=== PATIENT | female | born 1945 | race Caucasian/White ===

== ENCOUNTER → 2017-12-14 | Outpatient (CLI) | payer OTHER ==
--- NOTE | 2017-12-14 15:52 | US ---
THYROID ULTRASOUND CLINICAL INFORMATION: Thyroid nodules. TECHNIQUE: Standard transcutaneous scanning 2-dimensional and Doppler modes. COMPARISON: None. FINDINGS: Thyroid size: Right lobe 4.3 x 1.5 x 1.5 cm. Left lobe 4.2 x 2.0 x 1.5 cm. Isthmus 3.3 mm. Texture: Heterogeneous. Estimated total number of nodules >/=1 cm: 1 Number of spongiform nodules >/=2 cm not described below (TR1): 0 Number of mixed cystic and solid nodules >/=1.5 cm not described below (TR2): 0 Nodule #: 1 Maximum size: 1.2 cm; All dimensions 1.1 x 0.9 cm Location: left; mid Composition: solid/almost completely solid (2). Nonvascular. Echogenicity: very hypoechoic (3) Shape: not [id number] (0) Margins: smooth (0) Echogenic foci: large comet-tail artifacts (0) ACR TI-RADS total points: 5. ACR TI-RADS risk category: TR4 (4-6 points) ACR TI-RADS recommendation: Follow-up ultrasound in 1 year Nodule #: 2 Maximum size: 0.6 cm; All dimensions 0.6 x 0.3 cm Location: left; upper Composition: solid/almost completely solid (2) Echogenicity: hypoechoic (2) Shape: not [id number] (0) Margins: smooth (0) Echogenic foci: none (0) ACR TI-RADS total points: 4. ACR TI-RADS risk category: TR4 (4-6 points) ACR TI-RADS recommendation: No further follow-up Nodule #: 3 Maximum size: 0.8 cm; All dimensions 0.6 x 0.5 cm Location: right; mid Composition: solid/almost completely solid (2). Minimally vascular by Doppler. Echogenicity: hypoechoic (2) Shape: not jhhenu-[id number] (0) Margins: smooth (0) Echogenic foci: none (0) ACR TI-RADS total points: 4. ACR TI-RADS risk category: TR4 (4-6 points) ACR TI-RADS recommendation: No further follow-up Nodule #: 4 Maximum size: 0.9 cm; All dimensions 0.8 x 0.6 cm Location: right; mid Composition: solid/almost completely solid (2) Echogenicity: hypoechoic (2) Shape: not gcwluy-ttmm-tafc (0) Margins: smooth (0) Echogenic foci: none (0) ACR TI-RADS total points: 4. ACR TI-RADS risk category: TR4 (4-6 points) ACR TI-RADS recommendation: No further follow-up No distinct solid mass or cyst in the adjacent soft tissues. No large calcifications or parenchymal edema. IMPRESSION: 1. 1.2 cm very hypoechoic solid nodule (nodule #1) in the mid left lobe with parallel orientation, smooth borders, and no calcifications. TIRADS risk category TR 4. Recommend thyroid ultrasound follow-up in one year interval. Please see below.* 2. Other solid hypoechoic nodules (nodules #2-4) are less than 1 cm diameter and are bilateral. Smooth borders, parallel orientation, and no calcifications. These are TI-RADS risk category TR 4.. no imaging follow-up is recommended (greatest diameter less than 1 cm). 3. Surrounding soft tissue is unremarkable. *ACR TI-RADS recommendations: TR5 (>/=7 points) - FNA if >/=1 cm, follow-up if 0.5 - 0.9 cm every year for 5 years TR4 (4-6 points) - FNA if >/=1.5 cm, follow-up if 1 - 1.4 cm in 1, 2, 3 and 5 years TR3 (3 points) - FNA if >/=2.5 cm, follow -up if 1.5 - 2.4 cm in 1, 3 and 5 years TR2 (2 points) and TR1 (0 points) - No FNA or follow-up * ACR TI-RADS recommends that no more than two nodules with the highest ACR TI-RADS total point should be biopsied and no more than four nodules should be followed. Electronically signed by: Carl Villanueva MD 12/14/2017 3:51 PM CDT
== END ==
LOC: US 09:45
PROVIDERS: ATTEND Family Medicine
DX: E04.1 Nontoxic single thyroid nodule (principal); I10 Essential (primary) hypertension; I65.29 Occlusion and stenosis of unspecified carotid artery

== ENCOUNTER → 2017-12-28 | Outpatient (CLI) | payer OTHER | LOC: GMAM 12:17 | PROVIDERS: ATTEND Family Medicine | DX: E53.8 Deficiency of other specified B group vitamins (principal) ==

== ENCOUNTER → 2018-01-09 | Outpatient (CLI) | payer OTHER | LOC: GMAM 10:31 | PROVIDERS: ATTEND Family Medicine | DX: R94.5 Abnormal results of liver function studies (principal) ==

== ENCOUNTER → 2018-01-13 | Outpatient (CLI) | payer OTHER ==
--- NOTE | 2018-01-13 12:45 | US ---
EXAM DESCRIPTION: Liver CLINICAL HISTORY: 72 years Female, ELEVATED LFT COMPARISON: Previous ultrasound of the liver April 16, [address] abdomen and pelvis April 27, 2016 TECHNIQUE: Upper abdominal sonogram was performed with attention to the liver. FINDINGS: Visualized portions of the pancreas are unremarkable. The liver is homogeneous in texture. No focal liver lesion. Upper length of 14.7 cm is normal. Positive color flow in the liver hilum. Central intrahepatic bile ducts appear prominent. Common duct is ectatic measuring 2.3 cm in diameter. Previous CT showed a very large common hepatic and common bile duct measuring 1.7 cm in diameter and no distal obstructing lesion was seen in the pancreas or within the ductal lumen. Prominent central intrahepatic ducts were also present at that time. Patient had a previous sonogram April 16, 2016 which showed ectatic pancreatic duct measuring 5 mm in diameter and markedly enlarged common hepatic and common bile duct over 2 cm in diameter. Without change, additional studies may not be indicated. Right kidney measures 8.7 cm in length which is abnormally small for an adult suggesting global atrophy or senescent changes. The right kidney appeared small on the previous sonogram but the length was not measured with the lower pole obscured by bowel gas. Gallbladder is not seen, evidently surgically absent. IMPRESSION: Dilated intrahepatic and extra hepatic bile ducts similar to previous studies. Small right kidney consistent with global atrophy or scarring. Electronically signed by: Nelson More MD 01/13/2018 12:43 PM CDT
== END ==
LOC: US 09:01
PROVIDERS: ATTEND Family Medicine
DX: R94.5 Abnormal results of liver function studies (principal)

== ENCOUNTER → 2018-01-18 | Outpatient (CLI) | payer OTHER ==
--- NOTE | 2018-01-18 09:47 | US ---
EXAM DESCRIPTION: Renal Ultrasound CLINICAL HISTORY: DISORDER OF KIDNEY AND URETER SMALL RIGHT SIDE KIDNEY COMPARISON: None. TECHNIQUE: Bryan scale and color flow sonographic images of the kidneys were obtained. FINDINGS: The kidneys are normal in echogenicity. The right kidney measures up to 8.9 cm in length and the left kidney measures up to 9.2 cm in length. There is no hydronephrosis, sonographically visible renal calculus, or sonographically visible renal mass. There is no perirenal fluid. IMPRESSION: Unremarkable renal ultrasound. Electronically signed by: Javier Hunter MD 01/18/2018 9:46 AM CDT
== END ==
LOC: US 08:28
PROVIDERS: ATTEND Family Medicine
DX: N28.89 Other specified disorders of kidney and ureter (principal)

== ENCOUNTER 2018-11-21 16:35 | Observation (INO) | payer MEDICARE, OTHER ==
[2018-11-21] MEDS ORDERED: ASPIRIN TABLET 325 MG TAB PO ONE (16:42)
[2018-11-21] MEDS ORDERED: ONDANSETRON INJ 4 MG/2 ML VIAL IV ONE (16:42)
[2018-11-21] MEDS ORDERED: NITROGLYCERIN 0.4 MG 25 EA TAB SL ONE ×2 (16:42→16:45)
[2018-11-21] MEDS ORDERED: SODIUM CHLORIDE 0.9% (FLUSH) 10 ML SYG IV PRN ×2 (16:42→21:31)
[2018-11-21] MEDS ORDERED: ASPIRIN TABLET 325 MG TAB ONE (16:43)
--- NOTE | 2018-11-21 17:23 | RAD ---
EXAM DESCRIPTION: Chest,1 View CLINICAL HISTORY: C.P. COMPARISON: 06 October 2018 TECHNIQUE: AP portable chest FINDINGS: Cardiomegaly is evident. The lungs are clear. No pulmonary edema seen. No pleural fluid is identified. Surgical clips are observed in the right axillary region. IMPRESSION: Cardiac megaly is observed without evidence of congestive heart failure. Electronically signed by: Jani Prince MD 11/21/2018 4:55 PM CDT
[2018-11-21] MEDS ORDERED: POTASSIUM BICARBONATE 25 MEQ TAB PO ONE (19:42)
--- NOTE | 2018-11-21 19:42 | ED.PDOC ---
History of Present Illness - General Chief Complaint: Chest Pain/MD Stated Complaint: Chest discomfort Time Seen by Provider: 11/21/18 16:40 Source: patient Exam Limitations: no limitations - History of Present Illness Initial Comments: NOON TODAY, STARTED HAVING PALPITATIONS AND CP. CENTRAL STERNAL PAIN. L ARM DISCOMFORT. ALSO CAUSING SOB. KNOWN H/O HTN, AFIB, ON ELIQUIS. BR CA IN 1991. Severity/Quality: severe, dull, pressure Location: substernal, central Chest Pain Radiation: shoulders Activities at Onset: none Prior Chest Pain/Cardiac Workup: heart attack Improving Factors: nothing Worsening Factors: nothing Nitro Today/Relief: no nitro taken today Aspirin Treatment Today: no aspirin today Associated Symptoms: shortness of breath Allergies/Adverse Reactions: Allergies Meperidine [From Demerol HCl] Adverse Reaction (Severe, Verified 10/19/17 19:40) Codeine Adverse Reaction (Verified 10/19/17 16:48) Other Morphine Adverse Reaction (Verified 10/19/17 16:48) Other Home Medications: Ambulatory Orders Apixaban [Eliquis] 5 mg PO BID 10/19/17 BuPROPion XL [Wellbutrin XL] 150 mg PO BID 10/19/17 Clonazepam [Clonazepam Odt] 0.5 - 0.75 mg PO TID PRN 10/19/17 Amlodipine Besylate 10 mg PO DAILY 11/21/18 Aspirin [Aspirin Adult Low Dose] 81 mg PO DAILY 11/21/18 Cyclobenzaprine HCl [Flexeril] 10 mg PO BEDTIME 11/21/18 Furosemide [Lasix] 20 mg PO DAILY 11/21/18 HYDROcodone 10MG/APAP 325MG [[place] 10/325] 1 tab PO Q6H PRN 11/21/18 Oxycodone HCl [Oxycontin] 10 mg PO BID 11/21/18 Potassium Chloride [Potassium Chloride ER] 8 meq PO DAILY PRN 11/21/18 Sumatriptan Succinate [Imitrex] 25 mg PO Q2H PRN 11/21/18 Triamcinolone Acetonide (Nasal [Nasacort Allergy 24Hr] 55 mcg MARGUERITE DAILY PRN 11/21/18 raNITIdine HCL [Zantac] 150 mg PO DAILY 11/21/18 Review of Systems - Review of Systems Constitutional: Denies: chills, fever, weakness EENTM: States: no symptoms reported Respiratory: States: short of breath. Denies: cough, wheezing Cardiology: States: chest pain, palpitations. Denies: syncope Gastrointestinal/Abdominal: States: no symptoms reported Genitourinary: States: no symptoms reported Musculoskeletal: States: no symptoms reported Skin: States: no symptoms reported Neurological: States: anxiety. Denies: headache Endocrine: States: no symptoms reported Hematologic/Lymphatic: States: no symptoms reported All other Systems: Reviewed and Negative Past Medical History (General) - Patient Medical History Hx Seizures: No Hx Stroke: No Hx Asthma: No Hx of COPD: No Hx Cardiac Disorders: Yes - A fib; MD 2009 Hx Congestive Heart Failure: No Hx Pacemaker: No Hx Hypertension: Yes Hx Diabetes: No Hx Cancer: Yes - Breast 1991 Hx MRSA: No Surgical History: cholecystectomy, Hysterectomy, other - Vaccination History Hx Influenza Vaccination: Yes - 2018 Hx Pneumococcal Vaccination: No - Social History Hx Tobacco Use: Yes - Quit in the Hx Alcohol Use: No Hx Substance Use: No Hx Substance Use Treatment: No Hx Depression: No Hx Physical Abuse: No Hx Emotional Abuse: No Family Medical History - Family History Mother Family History: Unknown Physical Exam - Physical Exam General Appearance: Alert, Other - ANXIOUS-APPEARING Eyes, Ears, Nose, Throat Exam: PERRL/EOMI, normal ENT inspection Neck: non-tender, full range of motion, supple, normal inspection Respiratory: chest non-tender, lungs clear, normal breath sounds Cardiovascular/Chest: normal peripheral pulses, regular rate, rhythm, no murmur Peripheral Pulses: radial,right: 2+, radial,left: 2+ Gastrointestinal/Abdominal: normal bowel sounds, non tender Rectal Exam: deferred Extremity: normal range of motion, normal inspection, no pedal edema, no calf tenderness Neurologic: no motor/sensory deficits, alert, oriented x 3 Skin Exam: normal color, warm/dry Lymphatic: no adenopathy Progress - Progress Progress: 11/21/18 19:46 CBC NEG. CMP K+ 3.2 CXR NEG EXCEPT KNWON CARDIOMEGALY. NO CHF/PULMONARY EFFUSION. CARDIAC ENZ NEG X 2. EKG AFIB (KNOWN HX) BNP MILDLY ELEV AT 352 BUT NO OTHER CLINICAL S/SX OF ACUTE HEART FAILURE. COAGS NEG. ANXIETY - HOME CLONIDINE GIVEN. NO ACS OF YET. ADMITTING FOR CP R/O. THANK YOU, DONNA DANIELS AND [facility], FOR ACCEPTING FURTHER CARE OF THIS PT. Departure - Departure Clinical Impression: Hypertensive cardiomegaly, Hypokalemia, History of MD (myocardial infarction) Chest pain Qualifiers: Chest pain type: unspecified Qualified Code(s): R07.9 - Chest pain, unspecified Dyspnea Qualifiers: Dyspnea type: shortness of breath Qualified Code(s): R06.02 - Shortness of breath; R06.00 - Dyspnea, unspecified; R06.01 - Orthopnea Hypertension Qualifiers: Hypertension type: essential hypertension Qualified Code(s): I10 - Essential (primary) hypertension Atrial fibrillation Qualifiers: Atrial fibrillation type: chronic Qualified Code(s): I48.2 - Chronic atrial fibrillation Disposition: Admit Patient Condition: Fair Diet: low salt diet Referrals: Arun Harris MD [Primary Care Provider] - 1-2 Weeks Home Medications: Ambulatory Orders Apixaban [Eliquis] 5 mg PO BID 10/19/17 BuPROPion XL [Wellbutrin XL] 150 mg PO BID 10/19/17 Clonazepam [Clonazepam Odt] 0.5 - 0.75 mg PO TID PRN 10/19/17 Amlodipine Besylate 10 mg PO DAILY 11/21/18 Aspirin [Aspirin Adult Low Dose] 81 mg PO DAILY 11/21/18 Cyclobenzaprine HCl [Flexeril] 10 mg PO BEDTIME 11/21/18 Furosemide [Lasix] 20 mg PO DAILY 11/21/18 HYDROcodone 10MG/APAP 325MG [[place] 10/325] 1 tab PO Q6H PRN 11/21/18 Oxycodone HCl [Oxycontin] 10 mg PO BID 11/21/18 Potassium Chloride [Potassium Chloride ER] 8 meq PO DAILY PRN 11/21/18 Sumatriptan Succinate [Imitrex] 25 mg PO Q2H PRN 11/21/18 Triamcinolone Acetonide (Nasal [Nasacort Allergy 24Hr] 55 mcg MARUGERITE DAILY PRN 11/21/18 raNITIdine HCL [Zantac] 150 mg PO DAILY 11/21/18 Decision To Admit - Decistion To Admit Decision to Admit Reason: Admit from ER Decision to Admit Date: 11/21/18 Decision to Admit Time: 19:52
--- NOTE | 2018-11-21 20:42 | HP ---
SUPERVISING PHYSICIAN: NADER MATTHEWS MD CHIEF COMPLAINT: Palpitations. HISTORY OF PRESENT ILLNESS: This 73 year-old female went to her primary care physician's office for palpitations. She does have a history of atrial fibrillation and sees Dr. Yanez in the [facility] for this. Around noon today she started having palpitations and she went to Dr. Harris's office. There, they found that her heart rate was elevated and irregular consistent with atrial fibrillation. She also complains of sternal chest pain at the office as well as left arm pain. For this reason, she was sent to the Emergency Room. In the Emergency Room, she was evaluated and found to be in atrial fibrillation. Once again, she does have a history and states that she usually takes Metoprolol but weaned herself off about 6 months ago. She does not really give a good reason for weaning off. Initially, she has been prescribed some Lasix but only takes that when she starts to get some swelling. In the Emergency Room, she had a workup which included cardiac enzymes and EKG. The cardiac enzymes did not show any acute findings x2. An EKG showed no acute ST segment changes. Other lab work included a chemistry which showed a low potassium at 3.2 and elevated BNP at 352. Other labs were unremarkable. Chest x-ray showed cardiomegaly but no pulmonary vascular congestion. She was referred for admission for chest pain rule out. On primary examination, the patient is alert and oriented and in no distress. She does state she has been having some lower extremity swelling lately. PAST MEDICAL HISTORY: 1. She states myocardial infarction but the doctor says it was not due to a blockage, that it was an electrical issue.. 2. Hypertension. 3. Breast cancer. 4. Atrial fibrillation. 5. Migraine.. PAST SURGICAL HISTORY: 1. Cardiac ablation. 2. Right mastectomy. 3. Bilateral salpingo-oophorectomy. 4. Hysterectomy. 5. Back surgery. CURRENT MEDICATIONS: 1. Amlodipine 10 mg p.o. daily. 2. Eliquis 5 mg p.o. b.i.d. 3. Bupropion 150 mg p.o. at bedtime. 4. Clonazepam 0.5 to 0.75 mg as needed for anxiety. 5. Cyclobenzaprine 10 mg p.o. at bedtime. 6. Hydrocodone 10/325 one tab every 6 hours p.r.n. for pain. 7. Oxycodone 10 mg p.o. b.i.d. 8. Ranitidine 150 mg p.o. daily. 9. Imitrex 25 mg p.o. every 2 hours p.r.n. for migraine. 10. Triamcinolone nasal spray 55 mcg daily. ALLERGIES: MEPERIDINE, CODEINE, MORPHINE. FAMILY HISTORY: Brother has had several arterial blockages in the past. SOCIAL HISTORY: No recent alcohol or drugs. REVIEW OF SYSTEMS: CONSTITUTIONAL: No fever, chills, recent weight loss or weight gain. HEENT: No headaches, vision changes, ear pain, nasal congestion or throat pain. RESPIRATORY: No cough, hemoptysis or pleuritic chest pain. CARDIOVASCULAR: Positive for chest pain, positive for palpitations, positive for peripheral edema. GI: No nausea, vomiting, diarrhea, constipation or abdominal pain. GENITOURINARY: No dysuria, frequency or flank pain. HEMATOLOGIC: Positive for easy bruising but no transfusion reaction. ENDOCRINE: No polydipsia, polyuria or polyphagia. No heat or cold intolerance. MUSCULOSKELETAL: Positive for chronic back pain, no acute joint pain or joint swelling noted. NEUROLOGIC: No seizures, paresthesias or syncope. PHYSICAL EXAMINATION: VITAL SIGNS: Blood pressure 120/69, heart rate 99, respiratory rate 18, temperature 98.0, oxygen saturation 99%. GENERAL: Mrs. Escobar is a 73 year-old female in no acute distress at the time. CHEST: Lungs are clear to auscultation bilaterally. CARDIOVASCULAR: Irregular rate and rhythm, normal S1, S2. Sounds as though there is a murmur on occasional beats but not consistently throughout all heartbeats. ABDOMEN: Soft, positive bowel sounds, obese, no tenderness to palpation. GENITOURINARY: Exam is deferred. EXTREMITIES: Lower extremities with 2+ ankle edema. Capillary refill less than 2 seconds. NEUROLOGIC: The patient is alert and oriented, moves all extremities, extraocular movements are intact. Labs and films are discussed in the history of present illness. ASSESSMENT: 1. Chest pain, rule out acute coronary syndrome. 2. Atrial fibrillation. 3. Congestive heart failure with no acute severe exacerbation but elevated BNP. 4. Hypokalemia. 5. Chronic pain. PLAN: At this time, we will complete the chest pain rule out with 2 more sets of cardiac enzymes and EKGs. The next ones will be around midnight 30, subsequently at 0630. We are also going to resume metoprolol. Her blood pressure is fairly controlled at this time so I am going to start off at a lower dose. She stated at one time she was taking 150 mg. I am going to start her off at 25 mg and see if we can get better rate control. I am also going to resume her Lasix at 20 twice a day. Will resume that for tomorrow and give her some potassium as well. Resume her Eliquis and other medications as well. If everything remains stable, she will likely go home tomorrow. I do think she needs an echocardiogram but once again, she will see her jewelry technician in the [facility] and this will be done outpatient. #[id number] [facility]
[2018-11-21] MEDS ORDERED: ACETAMINOPHEN 325 MG TAB PO PRN (21:31)
[2018-11-21] MEDS ORDERED: NITROGLYCERIN 0.4 MG 25 EA TAB SL PRN (21:31)
[2018-11-21] MEDS ORDERED: HYDROcodone 10MG/APAP 325MG 1 EA TAB PO PRN (21:36)
[2018-11-21] MEDS ORDERED: APIXABAN 2.5 MG TAB PO ONE (21:42)
[2018-11-21] MEDS ORDERED: NON-FORMULARY MEDICATION 1 EA MIS (Apixaban [Eliquis] 5 MG) PO SCH (21:45)
[2018-11-21] MEDS ORDERED: IV SET AND CAP CHANGE INJ INJ SCH (22:00)
[2018-11-22] MEDS ORDERED: APIXABAN 2.5 MG TAB PO ONE (07:26)
[2018-11-22] MEDS ORDERED: amLODIPine BESYLATE 5 MG TAB ONE (07:27)
[2018-11-22] MEDS ORDERED: POTASSIUM CHLORIDE 20 MEQ TAB PO SCH (07:30)
[2018-11-22] MEDS ORDERED: METOPROLOL TARTRATE 25 MG TAB PO SCH (07:30)
[2018-11-22] MEDS ORDERED: APIXABAN 2.5 MG TAB PO SCH (09:00)
[2018-11-22] MEDS ORDERED: SODIUM CHLORIDE 0.9% (FLUSH) 10 ML SYG IV SCH (09:00)
[2018-11-22] MEDS ORDERED: ASPIRIN TABLET 325 MG TAB PO SCH (09:00)
[2018-11-22] MEDS ORDERED: amLODIPine BESYLATE 5 MG TAB PO SCH (09:00)
[2018-11-22] MEDS ORDERED: FUROSEMIDE 40 MG TAB PO SCH (09:00)
[2018-11-22 10:31] VITALS: BP 126/83; TEMP 98; O2SAT 95
[2018-11-22] MEDS ORDERED: CYCLOBENZAPRINE HCL 10 MG TAB PO SCH (21:00)
[2018-11-22] MEDS ORDERED: Wellbutrin XL 150 MG TAB PO SCH (21:00)
--- NOTE | 2018-11-23 09:51 | DS ---
SUPERVISING PHYSICIAN: Gregg Lane MD ADMISSION DIAGNOSIS: 1. Chest pain, rule out acute coronary syndrome. 2. Atrial fibrillation. 3. Congestive heart failure with no acute exacerbation, but slightly elevated BNP. 4. Hypokalemia. 5. Chronic pain. DISCHARGE DIAGNOSIS: 1. Chest pain with no acute findings to indicate ischemia or acute myocardial infarction. 2. Atrial fibrillation with controlled ventricular rate with patient on Eliquis. 3. Congestive heart failure without any signs of exacerbation. 4. Mild hypokalemia, likely due to diuretics with the patient on potassium replacement. 5. Chronic pain. REASON FOR HOSPITALIZATION: This 73 year-old female went to her primary care physician's office for palpitations. She does have a history of atrial fibrillation and sees Dr. Yanez in the [facility] for this. Around noon today she started having palpitations and she went to Dr. Harris's office. There, they found that her heart rate was elevated and irregular consistent with atrial fibrillation. She also complains of sternal chest pain at the office as well as left arm pain. For this reason, she was sent to the Emergency Room. In the Emergency Room, she was evaluated and found to be in atrial fibrillation. Once again, she does have a history and states that she usually takes Metoprolol but weaned herself off about 6 months ago. She does not really give a good reason for weaning off. Initially, she has been prescribed some Lasix but only takes that when she starts to get some swelling. In the Emergency Room, she had a workup which included cardiac enzymes and EKG. The cardiac enzymes did not show any acute findings x2. An EKG showed no acute ST segment changes. Other lab work included a chemistry which showed a low potassium at 3.2 and elevated BNP at 352. Other labs were unremarkable. Chest x-ray showed cardiomegaly but no pulmonary vascular congestion. She was referred for admission for chest pain rule out. On primary examination, the patient is alert and oriented and in no distress. She does state she has been having some lower extremity swelling lately. The patient was placed in Observation in stable condition. LABORATORY: CBC showed white count 5,300, hemoglobin 12.6, hematocrit 38.2, platelet count 280,000. Differential without a left shift. Coagulation studies showed normal PT and PTT. Chemistries showed mildly low potassium at 3.2. Otherwise, electrolytes within normal limits. BUN 14, creatinine 0.76, calcium normal at 9.3. Magnesium 2.3. Liver functions showed slightly elevated AST 44. All other liver enzymes within normal limits. She had 4 troponins that were all less than 0.02. CPK within normal limits with last one of 43. Lipid panel shows triglycerides 48, cholesterol 154, LDL 93, HDL 50. RADIOLOGY: Chest x-ray, single-view, showed cardiomegaly without evidence of congestion failure. EKG showed initially in the Emergency Room atrial fibrillation with controlled ventricular rate. All other repeats showed no acute changes. HOSPITAL COURSE: Ms. Escobar was admitted on 11/21/18 for rule out acute coronary syndrome. She was pain-free on admission to the Floor and had no recurrence of her chest pains. She was started back on metoprolol for blood pressure control as well as Lasix twice daily. She was continued on Eliquis. On date of discharge, after ambulating, she was without any chest pains and felt stable enough to continue with outpatient management. DISCHARGE ASSESSMENT: GENERAL: The patient was in no acute distress. She is alert. CHEST: Lung sounds clear to auscultation bilaterally. HEART: Slightly irregular rate and rhythm with controlled ventricular rate showing on the monitor without any appreciable murmurs, gallops, or rubs. ABDOMEN: Soft, nontender. Positive bowel sounds. EXTREMITIES: Trace edema bilaterally. NEUROLOGIC: Alert and oriented x3. PLAN: Ms. Escobar was discharged with instructions to followup with Dr. Harris in 7 days or less as well as Dr. Moreno, her applications trainer, and to call for appointments. She was instructed to take her medications as directed and to return to the hospital should she have any worsening symptoms or recurrence of her chest pain. Diet at discharge was regular diet as tolerated. Activity to increase as tolerated. NEW MEDICATIONS: 1. Nitrostat 0.4 mg sublingual 1 q. 5 minutes as needed x3, #1 bottle. 2. Lasix 20 mg daily, #30. 3. Metoprolol 25 mg b.i.d., #60. 4. Potassium chloride 20 mEq daily, #30. All other medications were continued as prior to arrival includin. Wellbutrin 150 mg at bedtime. 2. Nasacort daily. 3. OxyContin 10 mg b.i.d. 4. [place] 10/325 1 q.6h. as needed for pain. 5. Eliquis 5 mg b.i.d. 6. Zantac 150 mg daily. 7. Flexeril 10 mg daily. 8. Imitrex 25 mg q.2h. as needed for headache. 9. Amlodipine 10 mg daily. 10. Clonazepam 0.5 to 0.75 t.i.d. as needed. CONDITION AT DISCHARGE: Stable and improved. DISPOSITION: The patient was discharged to family. [facility][id number] [facility]
== END 2018-11-22 11:35 | disposition home or self-care (01) ==
LOC: ER 16:35 → MS 20:40
PROVIDERS: ADMIT Nurse Practitioner; ATTEND Nurse Practitioner Family
DX: I48.2 Chronic atrial fibrillation (principal); R07.2 Precordial pain; I11.0 Hypertensive heart disease with heart failure; I50.9 Heart failure, unspecified; E87.6 Hypokalemia; G89.29 Other chronic pain; F41.9 Anxiety disorder, unspecified; Z79.01 Long term (current) use of anticoagulants; Z79.891 Long term (current) use of opiate analgesic; Z79.899 Other long term (current) drug therapy; Z88.6 Allergy status to analgesic agent; Z87.891 Personal history of nicotine dependence; Z85.3 Personal history of malignant neoplasm of breast; Z90.11 Acquired absence of right breast and nipple
CPT/HCPCS: 96374; J2405; 82553 ×4; 80061; 36415 ×4; 82550 ×4; 80048; 85025; 85730; 85610; 84484 ×4; 80076; 83880; 71045; 94760; 99285; 93005 ×4; G0378

== ENCOUNTER → 2019-10-23 | Outpatient (CLI) | payer MEDICARE, OTHER | LOC: GMAM 11:36 | PROVIDERS: ATTEND Family Medicine | DX: E53.8 Deficiency of other specified B group vitamins (principal); I10 Essential (primary) hypertension; D64.9 Anemia, unspecified ==

== ENCOUNTER 2019-12-20 19:41 | Observation (INO) | payer OTHER ==
[2019-12-20] MEDS ORDERED: ONDANSETRON INJ 4 MG/2 ML VIAL IV ONE (19:50)
[2019-12-20] MEDS ORDERED: SODIUM CHLORIDE 0.9% (FLUSH) 10 ML SYG IV PRN ×2 (19:50→22:03)
[2019-12-20] MEDS ORDERED: NITROGLYCERIN 0.4 MG 25 EA TAB SL ONE (19:50)
[2019-12-20] MEDS ORDERED: NITROGLYCERIN 2% 1 GM UD TOP ONE (20:40)
--- NOTE | 2019-12-20 20:42 | RAD ---
EXAM DESCRIPTION: Chest,1 View CLINICAL HISTORY: 74 years Female cp COMPARISON: 11/21/2018 FINDINGS: Cardiac enlargement. Prominence of the central bony vasculature. No acute consolidation or evidence of pulmonary edema. No pleural fluid or pneumothorax. IMPRESSION: Cardiac enlargement No acute infiltrate identified Electronically signed by: Symone Rodrigues MD 12/20/2019 8:40 PM CDT
--- NOTE | 2019-12-20 21:09 | ED.PDOC ---
History of Present Illness - General Chief Complaint: Chest Pain/CA Stated Complaint: chest pain Time Seen by Provider: 12/20/19 19:50 Source: patient, RN notes reviewed, Vital Signs reviewed, family - Exam Limitations: no limitations - History of Present Illness Initial Comments: Patient is a 74-year-old white female who noticed an onset of chest pain approximately 1 hour prior to arrival. The pain was tight in nature. 9/10 in intensity. Radiating straight through to her back and down her left arm and into her left neck. Patient had nausea with diaphoresis. She had no vomiting. She did not experience dizziness. The pain improved with nitroglycerin. On arrival here her pain was 7/10. Patient has a history of atrial fibrillation. She was seen by her electronic scanner operator approximately 1 month ago. At that time they did a nuclear stress test which showed some inferior wall abnormalities. A cardiac cath was performed and her coronary arteries were found to be clean. On arrival here her blood pressure is 200/110. Patient denies any headache, blurry vision, dizziness, weakness, diarrhea, paresthesias. Timing/Duration: 1-3 hours Severity/Quality: severe Location: substernal, central Chest Pain Radiation: jaw, arms, back Activities at Onset: none Prior Chest Pain/Cardiac Workup: cardiac cath, cardiolye scan, thallium scan Worsening Factors: medication - Nitroglycerin Nitro Today/Relief: 0.4 mg x 3, 0.4 mg x 4, provided by EMS, provided by ED, provided at home Aspirin Treatment Today: no aspirin today Associated Symptoms: back pain, diaphoresis, nausea/vomiting - Nausea only, shortness of breath Allergies/Adverse Reactions: Allergies Meperidine [From Demerol HCl] Adverse Reaction (Severe, Verified 11/21/18 20:50) Codeine Adverse Reaction (Verified 11/21/18 20:50) Other Morphine Adverse Reaction (Verified 11/21/18 20:50) Other Home Medications: Ambulatory Orders Apixaban [Eliquis] 5 mg PO BID 10/19/17 BuPROPion XL [Wellbutrin XL] 150 mg PO BEDTIME 10/19/17 Clonazepam [Clonazepam Odt] 0.5 - 0.75 mg PO TID PRN 10/19/17 Amlodipine Besylate 10 mg PO DAILY 11/21/18 Cyclobenzaprine HCl [Flexeril] 10 mg PO BEDTIME 11/21/18 HYDROcodone 10MG/APAP 325MG [Rolla 10/325] 1 tab PO Q6H PRN 11/21/18 Oxycodone HCl [Oxycontin] 10 mg PO BID 11/21/18 Nitroglycerin 0.4 mg Tab [Nitrostat] 1 ea SL Q5MIN PRN #1 bttl 11/22/18 Potassium Chloride Tab [K-Dur] 20 meq PO DAILYBK #30 tab 11/22/18 Aspirin [Aspirin Low Strength] 81 mg PO 12/20/19 Furosemide [Lasix] 20 mg PO DAILY PRN 12/20/19 Losartan Potassium 50 mg PO BID 12/20/19 Metoprolol Tartrate [Lopressor] 100 mg PO DAILY 12/20/19 Omeprazole 20 mg PO BID 12/20/19 Sumatriptan Succinate [Imitrex] 25 mg PO PRN 12/20/19 Review of Systems - Review of Systems Constitutional: States: no symptoms reported, see HPI. Denies: chills, fever, malaise EENTM: States: no symptoms reported, see HPI. Denies: blurred vision, double vision, throat pain Respiratory: States: see HPI, short of breath. Denies: cough, stridor, wheezing Cardiology: States: see HPI, chest pain, edema - Bilateral lower extremities.. Denies: palpitations, syncope Gastrointestinal/Abdominal: States: see HPI, nausea. Denies: vomiting Genitourinary: States: no symptoms reported Musculoskeletal: States: see HPI, back pain. Denies: neck pain Skin: States: no symptoms reported. Denies: change in color, rash Neurological: States: no symptoms reported Endocrine: States: no symptoms reported Hematologic/Lymphatic: States: no symptoms reported All other Systems: No Change from Baseline Past Medical History (General) - Patient Medical History Hx Seizures: No Hx Stroke: No Hx Asthma: No Hx of COPD: No Hx Cardiac Disorders: Yes - A fib; CA 2009 Hx Congestive Heart Failure: Yes Hx Pacemaker: No Hx Hypertension: Yes Hx Diabetes: No Hx Cancer: Yes - left breast with mastectomy Hx MRSA: No - Vaccination History Hx Tetanus, Diphtheria Vaccination: No Hx Influenza Vaccination: Yes Hx Pneumococcal Vaccination: No Immunizations Up to Date: No - Social History Hx Tobacco Use: Yes Hx Alcohol Use: Yes Hx Substance Use: No Hx Substance Use Treatment: No Hx Depression: No Hx Physical Abuse: No Hx Emotional Abuse: No - Female History Patient is a Female of Child Bearing Age (10 -59 yrs old): No Family Medical History - Family History Mother Family History: Unknown Living Status: Physical Exam - Physical Exam General Appearance: Alert, Anxious, Obese, Well Developed, Well Groomed, Well Hydrated, Well Nourished Eyes, Ears, Nose, Throat Exam: PERRL/EOMI, normal ENT inspection, pharynx normal Neck: non-tender, full range of motion, supple, normal inspection Respiratory: chest non-tender, lungs clear, no respiratory distress, rhonchi - In bases bilaterally Cardiovascular/Chest: normal peripheral pulses, no murmur, irregularly irregular, other - Mild peripheral edema bilaterally in the lower extremities. Peripheral Pulses: radial,right: 2+, radial,left: 2+ Gastrointestinal/Abdominal: normal bowel sounds, non tender, soft, no organomegaly, no pulsatile mass Extremity: normal range of motion, non-tender, normal inspection, pedal edema, swelling Neurologic: assessment expert II-XII nml as tested, no motor/sensory deficits, alert, normal mood/affect, oriented x 3 Skin Exam: normal color, warm/dry Lymphatic: no adenopathy Progress - Progress Progress: Differential diagnosis: Unstable angina, NSTEMI, pneumonia, CHF exacerbation among others. 12/20/19 21:27 Unlikely to be coronary artery disease as patient had a normal cath 1 month ago. Mild CHF exacerbation with accelerated hypertension. Plan on admission to the hospital for diuresis and blood pressure management. I discussed this plan of care with the patient and her and they voiced understanding and agreement. I have discussed this patient with Aleja Ventura NP, who has graciously accepted the patient for admission. Ace Minor M.D. #[id number] - Results/Orders Results/Orders: 12/20/19 19:50 Sodium Chloride 0.9% (Flush) [Saline Flush Syringe] 10 ml IV PRN PRN 12/20/19 19:51 IV Care:Saline Lock per Protoc QSHIFT Telemetry .ONCE EKG Assessment ONCE EKG Stat Pulse Ox Stat Pulse Oximetry Assessment DAILY Laboratory Results - last 24 hr 12/20/19 20:05 WBC 4.1 L RBC 3.94 L Hgb 10.3 L Hct 32.0 L MCV 81.2 MCH 26.2 L MCHC 32.2 L RDW 15.6 H Plt Count 147 MPV 8.7 Absolute Neuts (auto) 2.60 Absolute Lymphs (auto) 0.90 L Absolute Monos (auto) 0.30 Absolute Eos (auto) 0.20 Absolute Basos (auto) 0.00 Neutrophils % 63.3 Lymphocytes % 21.3 Monocytes % 8.5 Eosinophils % 5.7 H Basophils % 1.2 PT 11.3 H INR 1.14 PTT (SP) 23.8 Sodium 139 Potassium 3.7 Chloride 105 Carbon Dioxide 28 Anion Gap 9.7 L BUN 20 H Creatinine 1.12 BUN/Creatinine Ratio 17.9 Random Glucose 110 H Serum Osmolality 280.8 Calcium 8.6 Magnesium 1.9 Creatine Kinase 65 CK-MB (CK-2) 1.5 CK-MB (CK-2) % Not Reportable Troponin I < 0.02 B-Natriuretic Peptide 701.0 H* EXAM DESCRIPTION: Chest,1 View CLINICAL HISTORY: 74 years Female cp COMPARISON: 11/21/2018 FINDINGS: Cardiac enlargement. Prominence of the central bony vasculature. No acute consolidation or evidence of pulmonary edema. No pleural fluid or pneumothorax. IMPRESSION: Cardiac enlargement No acute infiltrate identified Electronically signed by: Symone Rodrigues MD 12/20/2019 8:40 PM EKG performed 20 December 2019 at 1946 hrs.: Atrial fibrillation at 75 bpm, prolonged QT at 454 ms, abnormal EKG. No acute signs of ischemia. No prior EKG available for comparison. Departure - Departure Clinical Impression: Accelerated hypertension Congestive heart failure Qualifiers: Heart failure type: unspecified Heart failure chronicity: acute on chronic Qualified Code(s): I50.9 - Heart failure, unspecified Chest pain Qualifiers: Chest pain type: other chest pain Qualified Code(s): R07.89 - Other chest pain; R07.8 - Other chest pain Time of Disposition: 21:00 Disposition: Admit Patient Condition: Good Departure Forms: ED Discharge - Pt. Copy, Patient Portal Self Enrollment Referrals: Arun Harris MD [Primary Care Provider] - 1-2 Weeks Home Medications: Ambulatory Orders Apixaban [Eliquis] 5 mg PO BID 10/19/17 BuPROPion XL [Wellbutrin XL] 150 mg PO BEDTIME 10/19/17 Clonazepam [Clonazepam Odt] 0.5 - 0.75 mg PO TID PRN 10/19/17 Amlodipine Besylate 10 mg PO DAILY 11/21/18 Cyclobenzaprine HCl [Flexeril] 10 mg PO BEDTIME 11/21/18 HYDROcodone 10MG/APAP 325MG [Rolla 10/325] 1 tab PO Q6H PRN 11/21/18 Oxycodone HCl [Oxycontin] 10 mg PO BID 11/21/18 Nitroglycerin 0.4 mg Tab [Nitrostat] 1 ea SL Q5MIN PRN #1 bttl 11/22/18 Potassium Chloride Tab [K-Dur] 20 meq PO DAILYBK #30 tab 11/22/18 Aspirin [Aspirin Low Strength] 81 mg PO 12/20/19 Furosemide [Lasix] 20 mg PO DAILY PRN 12/20/19 Losartan Potassium 50 mg PO BID 12/20/19 Metoprolol Tartrate [Lopressor] 100 mg PO DAILY 12/20/19 Omeprazole 20 mg PO BID 12/20/19 Sumatriptan Succinate [Imitrex] 25 mg PO PRN 12/20/19 Decision To Admit - Decistion To Admit Decision to Admit Date: 12/20/19 Decision to Admit Time: 21:00
[2019-12-20] MEDS ORDERED: ONDANSETRON INJ 4 MG/2 ML VIAL IV PRN (21:59)
[2019-12-20] MEDS ORDERED: ACETAMINOPHEN 325 MG TAB PO PRN (22:03)
[2019-12-20] MEDS ORDERED: NITROGLYCERIN 0.4 MG 25 EA TAB SL PRN (22:03)
[2019-12-20] MEDS ORDERED: FUROSEMIDE INJ 40 MG/4 ML VIAL IV ONE (22:12)
[2019-12-20] MEDS ORDERED: cloNIDine HCL 0.1 MG TAB PO PRN (22:17)
[2019-12-20] MEDS ORDERED: HYDROcodone 10MG/APAP 325MG 1 EA TAB PO PRN (22:21)
[2019-12-20] MEDS ORDERED: METOPROLOL TARTRATE 50 MG TAB PO ONE (22:23)
[2019-12-20] MEDS ORDERED: IV SET AND CAP CHANGE INJ INJ SCH (22:30)
[2019-12-20] MEDS ORDERED: LOSARTAN POTASSIUM 25 MG TAB ONE (22:51)
[2019-12-20] MEDS ORDERED: METOPROLOL TARTRATE 50 MG TAB ONE (22:52)
[2019-12-20] MEDS: NON-FORMULARY MEDICATION 1 EA MIS (Losartan Potassium [Losartan Potassium] 50 MG) PO SCH (22:58)
[2019-12-21] MEDS ORDERED: CYCLOBENZAPRINE HCL 10 MG TAB PO PRN ×2 (05:09→08:23)
[2019-12-21] MEDS ORDERED: SUMAtriptan SUCCINATE 50 MG TAB PO PRN (05:10)
[2019-12-21 06:27] VITALS: TEMP 97.6
[2019-12-21] MEDS ORDERED: PANTOPRAZOLE SODIUM IV 40 MG VIAL IV SCH (06:30)
--- NOTE | 2019-12-21 06:50 | RAD ---
EXAM DESCRIPTION: X-ray two view chest. CLINICAL HISTORY: 74 years Female, CHF COMPARISON: 12/20/2019 and 11/21/2018 TECHNIQUE: PA and Lateral views of the chest performed on 12/21/2019 at 5:54 AM FINDINGS: The lungs are well expanded and are grossly clear. The costophrenic sulci are clear. There is no evidence of a pneumothorax. The cardiac silhouette is stable and is mildly enlarged. The mediastinal contours are normal. No acute osseous abnormalities are identified. No focal soft tissue abnormalities are identified. IMPRESSION: 1. No definite acute intrathoracic disease. 2. Stable enlargement of the cardiac silhouette. Electronically signed by: Gayla Santana DO 12/21/2019 6:48 AM CDT
[2019-12-21] MEDS ORDERED: LOSARTAN POTASSIUM 25 MG TAB ONE (08:17)
[2019-12-21] MEDS ORDERED: POTASSIUM CHLORIDE 20 MEQ TAB PO ONE (08:21)
[2019-12-21] MEDS ORDERED: SUMATRIPTAN SUCCINATE 25 MG PO PRN (08:23)
[2019-12-21] MEDS ORDERED: METOPROLOL SUCCINATE XL 100 MG TAB PO SCH ×2 (09:00→10:30)
[2019-12-21] MEDS ORDERED: ASPIRIN (CHEWABLE) 81 MG TAB PO SCH (09:00)
[2019-12-21] MEDS ORDERED: SODIUM CHLORIDE 0.9% (FLUSH) 10 ML SYG IV SCH (09:00)
[2019-12-21] MEDS ORDERED: FUROSEMIDE INJ 40 MG/4 ML VIAL IV SCH (09:00)
[2019-12-21] MEDS ORDERED: APIXABAN 5 MG TAB PO SCH (09:00)
[2019-12-21] MEDS ORDERED: LOSARTAN POTASSIUM 25 MG TAB PO SCH (09:15)
[2019-12-21 10:10] VITALS: BP 145/75; O2SAT 98
--- NOTE | 2019-12-21 11:31 | SSS ---
SUPERVISING PHYSICIAN: Hamilton Mendez MD DATE OF ADMISSION: 12/20/19 DATE OF DISCHARGE: 12/21/19 DISCHARGE DIAGNOSIS: 1. Hypertensive crisis. 2. Mild exacerbation of congestive heart failure with unknown etiology. There is no echocardiogram to review at this time. She is presently on a beta gudelia, ARB and diuretic. 3. Chest pain with no EKG changes or elevated cardiac enzymes. 4. History of atrial fibrillation on Eliquis. 5. Chronic pain syndrome on multiple pain medications. 6. History of migraine headaches. HISTORY OF PRESENT ILLNESS: This is a 74-year-old female patient who presented to the Emergency Room with chest pain. It started approximately one hour prior to arrival. The pain was tight in nature. It was 9/10 in intensity. It radiated through her back, down her left arm and into the left side of her neck. She had some nausea with some diaphoresis. There was no dizziness. The pain did improve with nitroglycerin. It was reported that her blood pressure was 200/110 at home. When she arrived at the Emergency Room, her pain was 7/10. She does have a history of atrial fibrillation and congestive heart failure. She was seen by her counter clerk approximately one month ago. A nuclear stress test and cardiac cath were performed. She did have some inferior wall abnormality, but her coronary arteries were found to be clean. Although her blood pressure was elevated, the patient denied any headache, blurry vision, dizziness, weakness, diarrhea or paresthesias. Her initial set of cardiac enzymes were negative. EKG showed atrial fibrillation on the monitor at a rate of about 59. She was afebrile. Her other lab studies showed a CBC that was unremarkable with electrolytes that were within normal limits. BUN was 20, creatinine 1.12. BNP was 701. In the ER, she was given some nitroglycerin as well as some Zofran. She was placed in observation in stable condition. HOSPITAL COURSE: The patient had no further complaints of chest pain although she did complain of a migraine headache. Her serial cardiac enzymes were all negative. She does admit that she has some poor compliance with her medications, but she said her blood pressure has been elevated off and on for some time. She has some kind of blood pressure monitoring system that is unable to connect with Dr. Harris's office, but she had her blood pressures on her phone. Her systolic blood pressure ran between 140s to 180s. Diastolic blood pressure ran in the 90s to 100s. She was given some IV Lasix. Her home medications were restarted, including Eliquis which was sufficient for DVT prophylaxis. Her pain medications were restarted. She was given a dose of Imitrex for her migraine headaches. She will be discharged this morning in stable condition with close followup with Dr. Harris. PAST MEDICAL HISTORY: 1. Myocardial infarction. 2. Hypertension. 3. Breast cancer. 4. Atrial fibrillation on Eliquis. 5. Migraine headaches. PAST SURGICAL HISTORY: 1. Cardiac ablation. 2. Right mastectomy. 3. Bilateral salpingo-oophorectomy. 4. Hysterectomy. 5. Back surgery. CURRENT MEDICATIONS: 1. Wellbutrin. 2. Clonazepam. 3. Hydrocodone. 4. Nitroglycerin. 5. Omeprazole. 6. Eliquis. 7. Aspirin. 8. Cyclobenzaprine. 9. Losartan. 10. Metoprolol. 11. Imitrex. ALLERGIES: SULFA, MEPERIDINE, CODEINE, MORPHINE. FAMILY HISTORY: Positive for coronary artery disease. SOCIAL HISTORY: She denies smoking, ETOH or illicit drug use. REVIEW OF SYSTEMS: GENERAL: Negative for fever, chills or weight changes. HEENT: Negative for sinus symptoms, ear pain, vision changes or sore throat. RESPIRATORY: Negative for wheezing, coughing or shortness of breath. CARDIAC: Positive for chest pain, palpitations. Negative for tachycardia. GASTROINTESTINAL: Positive for nausea. Negative for vomiting, diarrhea, constipation. GENITOURINARY: Negative for hematuria, dysuria or polyuria. MUSCULOSKELETAL: Positive for chronic back pain. Negative for arthralgias. NEUROLOGIC: Positive for weakness and migraine headaches. Negative for seizures or syncope. PHYSICAL EXAMINATION: VITAL SIGNS: Temperature 97.6. Heart rate 75. Blood pressure 145/75. Respiratory rate 18. O2 saturation 98% on room air. GENERAL: This is a 74-year-old female patient lying in her hospital bed. She is in no acute distress. HEENT: Normocephalic, atraumatic. Pupils are equal and reactive. Oropharynx is clear. NECK: Supple without mass. RESPIRATORY: Essentially clear to auscultation bilaterally. CHEST: There is equal rise and fall of the chest with inspiration and expiration. CARDIOVASCULAR: Irregular rate and rhythm. Atrial fibrillation on the cardiac technologist. GASTROINTESTINAL: Abdomen is soft, nondistended, nontender. Bowel sounds are positive. EXTREMITIES: Bilateral lower extremity edema +1. Otherwise no cyanosis or clubbing. NEUROLOGIC: Awake, alert and oriented times three. Cranial nerves II-XII are grossly intact as tested. LABORATORY: Followup lab shows WBCs slightly low at 3.8, hemoglobin 9.7, hematocrit 30. PT 11.3, INR 1.14, PTT 23.8. Sodium 140, potassium 3.2. She did receive some potassium supplementation this morning. Chloride 104, carbon dioxide 29, BUN 29, creatinine 0.90, glucose 107, calcium 8.4, magnesium 1.9, total bilirubin 1.4. Triglycerides 54, LDL 89, HDL 45. Serial cardiac enzymes are negative. Her initial chest x-ray showed cardiac enlargement with no acute infiltrate identified. Her followup chest x-ray showed no definite acute intrathoracic disease, stable enlargement of the cardiac silhouette. DISCHARGE PLAN: The patient will be discharged home in stable condition. She is to resume her previous diet and activity. She is also to resume her home medications. The only change to her home medications is I have doubled her Lasix and doubled her potassium for right now. She was taken 20 mg of Lasix daily and 20 mEq of potassium. I have increased that to 40 mg of Lasix daily and 40 mEq of potassium daily. She can discuss those changes with Dr. Harris when she has a followup appointment. I did send a prescription for clonidine to [facility] with instructions to take her clonidine if her systolic blood pressure is greater than 185 or her diastolic blood pressure is greater than 90. I have also stressed that she needs to take her medications as prescribed. She has a followup telemedicine appointment with Dr. Harris on 12/25/19, at 9:45 AM. She is to return to the hospital or followup with Dr. Harris if there are any problems or complications. DISCHARGE MEDICATIONS: 1. Eliquis. 2. Clonazepam. 3. Cyclobenzaprine. 4. Hydrocodone. 5. Nitroglycerin. 6. Omeprazole. 7. Imitrex. 8. Losartan. 9. Aspirin. 10. Metoprolol. 11. Furosemide. 12. Potassium chloride. 13. Wellbutrin. 14. Clonidine. #[id number] [facility]
[2019-12-21] MEDS: NON-FORMULARY MEDICATION 1 EA MIS (Losartan Potassium [Losartan Potassium] 50 MG) PO SCH (11:51)
[2019-12-22] MEDS ORDERED: LOSARTAN POTASSIUM 25 MG TAB PO SCH (09:00)
== END 2019-12-21 11:40 | disposition home or self-care (01) ==
LOC: ER 19:41 → MS 21:38
PROVIDERS: ADMIT Nurse Practitioner Acute Care; ATTEND Nurse Practitioner Acute Care
DX: I16.9 Hypertensive crisis, unspecified (principal); I11.0 Hypertensive heart disease with heart failure; I50.9 Heart failure, unspecified; R07.89 Other chest pain; I48.91 Unspecified atrial fibrillation; G89.4 Chronic pain syndrome; G43.909 Migraine, unspecified, not intractable, without status migrainosus; I25.2 Old myocardial infarction; Z82.49 Family history of ischemic heart disease and other diseases of the circulatory system; Z79.01 Long term (current) use of anticoagulants; Z79.891 Long term (current) use of opiate analgesic; Z79.82 Long term (current) use of aspirin; Z79.899 Other long term (current) drug therapy; Z88.2 Allergy status to sulfonamides; Z88.6 Allergy status to analgesic agent; Z85.3 Personal history of malignant neoplasm of breast; Z90.11 Acquired absence of right breast and nipple; Z90.710 Acquired absence of both cervix and uterus
CPT/HCPCS: 96374; 96375 ×2; 96376; J1940 ×2; J2405; 82553 ×3; 80053; 80061; 36415 ×3; 82550 ×3; 80048; 85025 ×2; 85730; 85610; 84484 ×3; 83880; 71045; 71046; 99285; 93005 ×2; G0378

== ENCOUNTER → 2019-12-27 | Outpatient (CLI) | payer OTHER | LOC: GMAM 15:37 | PROVIDERS: ATTEND Family Medicine | DX: R06.02 Shortness of breath (principal); I10 Essential (primary) hypertension ==

== ENCOUNTER → 2020-01-01 | Outpatient (CLI) | payer OTHER | LOC: GMAM 11:38 | PROVIDERS: ATTEND Family Medicine | DX: D64.9 Anemia, unspecified (principal) ==